=== PATIENT | male | born 1995 | race Caucasian/White ===

== ENCOUNTER 2024-03-23 19:27 | Emergency (ER) | payer MEDICAID, SELFPAY ==
[2024-03-23 19:29] VITALS: BMI 28.2
[2024-03-23 19:52] VITALS: BP 130/70; PULSE 80; RESP 18; TEMP 36.6; O2SAT 100
--- NOTE | 2024-03-23 20:03 | PD.EDWOUND ---
ED Wound/Laceration-RME/HPI General Stated Complaint: LACERATION TO RIGHT HAND Time Seen by Provider: 03/23/24 19:49 Arrival date/time: 03/23/24 19:27 RME / HPI RME / HPI narrative: 28-year-old male presents with complaint of laceration to the palmar aspect of his right hand onset just prior to arrival. 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 Patient's not sure when his last Tdap was. Patient is right-handed. Related Data Allergies Allergy/AdvReac Type Severity Reaction Status Date / Time No Known Allergies Allergy Verified 03/23/24 19:28 Review of Systems Review of Systems Narrative Review of Systems: Review of systems negative except as outlined in the HPI. ED Exam Narrative Physical exam: Constitutional: no acute distress, age appropriate, non-toxic Eyes: conjunctivae w/o pallor, EOMI HENT: normocephalic, atraumatic. Respiratory Effort: no stridor, effort normal, no tachypnea Skin: warm, dry; 2 to 5 cm laceration to the palmar aspect of the right hand. Flexion extension of all digits intact against resistance. Cap refill less than 2 seconds. Neurology: alert, oriented X 4. Normal gait Psychology: cooperative, normal mood Course Quality Measures none Orders Category Date Time Status Irrigate Wound NOW Care 03/23/24 19:57 Active Tet,Diphth,Pertuss(Acell)-Tdap [Boostrix Vacc] Med 03/23/24 19:57 Discontinued 0.5 ml IMI .ONCE ONE Vital Signs Vital signs: Vital Signs Temperature 98 F 03/23/24 19:52 Pulse Rate 80 03/23/24 19:52 Respiratory Rate 18 03/23/24 19:52 Blood Pressure 130/70 03/23/24 19:52 Pulse Oximetry (%) 100 03/23/24 19:52 Oxygen Delivery Method Room Air 03/23/24 19:52 Procedures -ED Laceration Laceration 1: Site: hand Side (If applicable): right Size (cm): 2.5 Description: linear Depth: simple, single layer Local Anesthetic: lidocaine 1% Amount of anesthesia used (mL): 3 Pre-repair: wound explored, irrigated extensively and deep structures intact Skin layer closed with: nylon Size (cm): 4-0 Number of sutures: 2 Technique: simple, interrupted Wound / Laceration MDM Narrative MDM Narrative:: Patient came to the ED for laceration of the right hand. The wound was thoroughly irrigated with tap water. Laceration repaired with sutures, see procedure section. Patient tolerated procedure well without complications. Patient to return to ED or see PCP for suture removal in 7 days. Return to ED precautions given. Patient data External records reviewed:: [facility] previous records Clinical information provided by:: patient Social determinants that could affect healthcare access:: none Patient has the following chronic illnesses:: None How is presenting disease/condition affected by chronic disease/condition?: no chronic disease Evaluation data The following diagnostics were reviewed and interpreted by me:: other (specify) (N/A) Lab and/or radiology exams considered but not ordered:: N/A Interpretation Summary: N/A Medications / Prescriptions Medications or Prescriptions considered but not ordered:: N/A Medication administrations:: Medication Administration History Discontinued Medications Diphtheria/Tetanus/Acell Pertussis (Diphth,Pertuss(Acell),Tet Vac 0.5 Ml Vial) 0.5 ml IMi .ONCE ONE Stop: 03/23/24 19:58 See above Consultations Consultation(s) initiated? (list below): No Diagnosis Wound Differential Diagnosis: laceration, abscess, abrasion and avulsion of skin Most likely diagnosis given after review of the tests above:: Hand laceration Admission Indicated Admission indicated?: not indicated Admission Request Was there a request for admission?: No Disposition Plan Disposition Plan: Discharge Discharge Attestation Discharge Attestation: The patient and all family members were given an opportunity to ask questions and understood the discharge instructions. Discharge instructions specifically effects, indications for sooner follow up or return to the emergency department, and the expected course of current diagnosis. Patient condition: Stable Discharge Plan Plan Patient Disposition: HOME (Self Care) Problem List Clinical Impression: Hand laceration Patient/Caregiver Discharge Instructions Education Materials: ED Laceration, Hand: All Closures Additional Instructions: Suture removal in 7 days Print Language: American Stand Alone Forms: [employer] Award Info., Patient Portal Info Letter
[2024-03-23] MEDS: DIPHTH,PERTUSS(ACELL),TET VAC 0.5 ML VIAL IMi (20:24)
== END 2024-03-23 20:58 | disposition home or self-care (01) ==
LOC: SERX 20:49
PROVIDERS: Emergency Provider Emergency Medicine
DX: S61.411A Laceration without foreign body of right hand, initial encounter (principal); W26.8XXA Contact with other sharp object(s), not elsewhere classified, initial encounter; Y93.89 Activity, other specified; Z23 Encounter for immunization
CPT/HCPCS: 12001; 90471; 90715; 99283

== ENCOUNTER 2024-04-06 16:21 | Emergency (ER) | payer SELFPAY ==
[2024-04-06 16:30] VITALS: BP 143/90; PULSE 72; RESP 18; TEMP 36.8; O2SAT 98; BMI 29.0
--- NOTE | 2024-04-06 16:37 | EDNOTE_ITS ---
<Statement entered by Elli Grider MD - 04/07/24 11:54> As co-signing physician, I was present and available for consult prn. I concur with the plan and care as documented by the midlevel provider. ED Skin Abcess FB-RME/HPI General Chief complaint: Wound Recheck / Suture Removal Stated complaint: RIGHT HAND SUTURE REMOVAL X 2 Time Seen by Provider: 04/06/24 16:23 Arrival date/time: 04/06/24 16:21 28-year-old male presents to the emergency department today requesting suture removal patient is sutures placed 2 weeks ago to his right hand palmar aspect Limitations: no limitations Related Data Allergies Allergy/AdvReac Type Severity Reaction Status Date / Time No Known Allergies Allergy Verified 04/06/24 16:22 Review of Systems Review of Systems Systems Reviewed: All systems reviewed, normal except as documented Constitutional Constitutional: Reports system reviewed and no additional complaints, except as documented, Denies fever(s) and Denies headache(s) Eyes Eyes: Reports system reviewed and no additional complaints, except as documented and Denies blurry vision ENT Ears, Nose, Mouth, and Throat: Reports system reviewed and no additional complaints, except as documented, Denies headache(s), Denies nasal congestion and Denies nasal discharge Cardiovascular Cardiovascular: Reports system reviewed and no additional complaints, except as documented, Denies chest pain and Denies dyspnea Respiratory Respiratory: Reports system reviewed and no additional complaints, except as documented, Denies chest congestion, Denies cough and Denies dyspnea Gastrointestinal Gastrointestinal: Reports system reviewed and no additional complaints, except as documented and Denies abdominal pain Integumentary/Breasts Skin/Breast: Reports system reviewed and no additional complaints, except as documented, Denies rash and Reports wounds (Sutures in place right hand) Neurologic Neurologic: Reports system reviewed and no additional complaints, except as documented, Reports as per HPI and Denies headache(s) Past Medical History Social History SMOKING STATUS: Current every day smoker ED Exam General Limitations: Present no limitations General appearance: Present alert and in no apparent distress Head Head exam: Present atraumatic Eye Eye exam: Present normal appearance, PERRL and EOMI ENT ENT exam: Present normal exam, normal oropharynx and mucous membranes moist Neck Neck exam: Present normal inspection, full ROM and trachea midline Chest Chest inspection: Present normal inspection and symmetric chest wall rise Respiratory Respiratory exam: Present normal lung sounds bilaterally Cardiovascular Cardiovascular exam: Present regular rate, normal rhythm and normal heart sounds Abdominal Exam Abdominal exam: Present soft and normal bowel sounds Extremities Exam Extremities exam: Present normal inspection and full ROM Back Exam Back exam: Present normal inspection and full ROM Neurological Exam Neurological exam: Present alert, oriented X3 and CN II-XII intact Psychiatric Psychiatric exam: Present normal affect and normal mood Skin Skin exam: Present warm, dry and other (Sutures in place right hand) Course Quality Measures none Vital Signs Vital signs: Vital Signs Temperature 98.2 F 04/06/24 16:30 Pulse Rate 72 04/06/24 16:30 Respiratory Rate 18 04/06/24 16:30 Blood Pressure 143/90 H 04/06/24 16:30 Pulse Oximetry (%) 98 04/06/24 16:30 Oxygen Delivery Method Room Air 04/06/24 16:30 O2 saturation 98% room air within normal limits Skin / Abscess / Foreign Body MDM Narrative MDM Narrative:: 28-year-old male presents to the emergency department today requesting suture removal patient is sutures placed 2 weeks ago to his right hand palmar aspect On exam patient has no evidence of infection wound is well-approximated Sutures removed in their entirety Patient discharged home in no distress to follow-up with primary care doctor in the next 24 to 48 hours and for any worsening symptoms to return to the ER immediately Patient data External records reviewed:: [facility] previous records Clinical information provided by:: patient Social determinants that could affect healthcare access:: none Patient has the following chronic illnesses:: None How is presenting disease/condition affected by chronic disease/condition?: no chronic disease Evaluation data The following diagnostics were reviewed and interpreted by me:: other (specify) (N/A) Lab and/or radiology exams considered but not ordered:: Consider not ordered Interpretation Summary: N/A Medications / Prescriptions Medications or Prescriptions considered but not ordered:: Given Medication administrations:: Given Consultations Consultation(s) initiated? (list below): No Diagnosis Skin/Abscess Differential Diagnosis: other (Laceration) Most likely diagnosis given after review of the tests above:: Laceration Admission Indicated Admission indicated?: not indicated Admission Request Was there a request for admission?: No Disposition Plan Disposition Plan: Discharge Discharge Attestation Discharge Attestation: The patient and all family members were given an opportunity to ask questions and understood the discharge instructions. Discharge instructions specifically effects, indications for sooner follow up or return to the emergency department, and the expected course of current diagnosis. Patient condition: Stable Discharge Plan Plan Patient Disposition: HOME (Self Care) Disposition Comment: Stable Problem List Clinical Impression: Encounter for removal of sutures Patient/Caregiver Discharge Instructions Education Materials: ED Stitches/Staple Removal No ... Additional Instructions: Please follow up with your primary care doctor in the next 24-48hrs for any worsening symptoms return here immediately Print Language: Lithuanian Stand Alone Forms: [employer] Award Info., Patient Portal Info Letter PA/RESTORATIVE CARE TECHNICIAN Supervising Physician PA/RESTORATIVE CARE TECHNICIAN Supervising Physician: Dr. grider
== END 2024-04-06 16:40 | disposition home or self-care (01) ==
LOC: SERX 16:45
PROVIDERS: Emergency Provider Emergency Medicine; PCP Nurse Practitioner Primary Care
DX: S61.411D Laceration without foreign body of right hand, subsequent encounter (principal); X58.XXXD Exposure to other specified factors, subsequent encounter
CPT/HCPCS: 99282

== ENCOUNTER 2024-08-05 17:02 | Emergency (ER) | payer MEDICAID, SELFPAY ==
[2024-08-05 17:45] VITALS: BP 163/93; PULSE 108; RESP 18; TEMP 36.9; O2SAT 96
--- NOTE | 2024-08-05 17:55 | XR_ITS ---
Examination: Hand, right 3 views Technique: Hand AP, oblique, lateral 3 views Date and time of exam: August 05, 2024 at 1815 hours INDICATIONS: Injury today and today, hand pain FINDINGS: No acute fracture No dislocation No foreign body IMPRESSION: No acute fracture
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
[2024-08-05] MEDS: IBUPROFEN TAB 400 MG TABLET 800 MG PO (18:35)
--- NOTE | 2024-08-05 19:00 | PC.NURSE ---
PT CALLED BACK TO RECIEVE DC PAPERS; NO RESPONSE
--- NOTE | 2024-08-05 19:22 | PC.NURSE ---
PT CALLED BACK TO RECIEVE DC PAPERS; NO RESPONSE X2
--- NOTE | 2024-08-05 19:46 | PC.NURSE ---
PT CALLED BACK TO RECIEVE DC PAPERS; NO RESPONSE X3
--- NOTE | 2024-08-05 19:47 | PC.NURSE ---
NAx3 at 1947 for discharge paperwork.
== END 2024-08-05 19:48 | disposition home or self-care (01) ==
PROVIDERS: Emergency Provider Emergency Medicine; PCP Physician Assistant
DX: S60.311A Abrasion of right thumb, initial encounter (principal); X58.XXXA Exposure to other specified factors, initial encounter
CPT/HCPCS: 73120; 99283; A9270

== ENCOUNTER → 2024-08-31 | Outpatient (CLI) | payer MEDICAID, SELFPAY ==
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
--- NOTE | 2024-08-31 | XR_ITS ---
Examination: Bilateral hands, 6 views. Technique: AP, Oblique, Lateral each hand total 6 views Date and time of exam: August 31, 2024 1133 hours INDICATIONS: Bilateral hand pain 3 weeks ago post injury Findings: No fracture or dislocation involving either hand Mild juxta-articular bone demineralization No cortical bone erosions No foreign bodies IMPRESSION: No fracture or dislocation involving either hand
== END | disposition home or self-care (01) ==
PROVIDERS: Referring Provider Surgery Surgery of the Hand; Visit Provider Surgery Surgery of the Hand
DX: S69.92XA Unspecified injury of left wrist, hand and finger(s), initial encounter (principal); S69.91XA Unspecified injury of right wrist, hand and finger(s), initial encounter; X58.XXXA Exposure to other specified factors, initial encounter
CPT/HCPCS: 73110; 73130

== ENCOUNTER → 2024-12-04 | Outpatient (CLI) | payer MEDICAID, SELFPAY ==
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
== END | disposition home or self-care (01) ==
LOC: SMRI 07:07
PROVIDERS: PCP Family Medicine; Referring Provider Surgery Surgery of the Hand; Visit Provider Surgery Surgery of the Hand
DX: M25.531 Pain in right wrist (principal); M25.431 Effusion, right wrist; S69.91XS Unspecified injury of right wrist, hand and finger(s), sequela; X58.XXXS Exposure to other specified factors, sequela
CPT/HCPCS: 73221